=== PATIENT | female | born 1960 | race Caucasian/White ===

== ENCOUNTER 2017-10-27 13:49 | Day surgery (SDC) | payer OTHER ==
[2017-10-26 16:32] LABS: BASOPHILS % (AUTO) 0.3 % (0-1); EOSINOPHILS # (AUTO) 0.3 X10'3 (0-0.9); LYMPHOCYTES # (AUTO) 1.7 X10'3 (1.1-4.8); LYMPHOCYTES % (AUTO) 24.7 % (21-51); MEAN CORPUSCULAR HEMOGLOBIN 30.8 PG (27.0-31.0); MEAN CORPUSCULAR HGB CONC 33.9 % (33.0-36.5); MEAN CORPUSCULAR VOLUME 90.7 FL (78-98); MEAN PLATELET VOLUME 9.2 FL (7.4-10.4); MONOCYTES # (AUTO) 0.6 X10'3 (0-0.9); MONOCYTES % (AUTO) 8.7 % (2-12); NEUTROPHILS # (AUTO) 4.2 X10'3 (1.8-7.7); NEUTROPHILS % (AUTO) 62.3 % (42-75); PRE OP HEMATOCRIT 37.9 % (35.0-45.0); PRE OP HEMOGLOBIN 12.9 g/dL (12.0-16.0); PRE OP PLATELET COUNT 206 X10'3 (140-440); RED BLOOD COUNT 4.18 X10'6 (4.20-5.60); RED CELL DISTRIBUTION WIDTH 13.6 % (11.5-14.5)
[2017-10-26 16:41] LABS: HEMOGLOBIN A1C 5.8 % (4.5-6.2)
[2017-10-26 17:05] LABS: ALBUMIN 3.2 G/DL (3.4-5.0); ALBUMIN/GLOBULIN RATIO 0.9 (1.1-1.5); ALKALINE PHOSPHATASE 66 IU/L (46-116); BLOOD UREA NITROGEN 15 MG/DL (7-18); BUN/CREATININE RATIO 16.7 (6.6-38.0); CALCIUM 8.5 MG/DL (8.5-10.1); CHLORIDE 106 MMOL/L (99-107); PRE OP ALT 27 U/L (30-65); PRE OP ANION GAP 5 (8-16); PRE OP AST 21 U/L (10-37); PRE OP BILIRUB, TOTAL 0.6 MG/DL (0.0-1.0); PRE OP GLUCOSE 99 MG/DL (70-104); PRE OP POTASSIUM 3.8 MMOL/L (3.4-5.1); PRE OP SODIUM 142 MMOL/L (135-145); TOTAL CARBON DIOXIDE 31.2 MMOL/L (24-32); TOTAL PROTEIN 6.7 G/DL (6.4-8.2); eGFR 65 ML/MIN
[2017-10-27] VITALS (14 sets, daily range): BP systolic 134–171; BP diastolic 56–93
[~2017-10-27] VITALS: Ht 172.7 cm; Wt 138.5 kg
[~2017-10-27 13:49] MED LIST: ALBU8HFA PO; ASPI-1264 PO; ESCI20TA38 PO; FLUT16SP2 BOTHNARES; HYDR12.5 PO; IBUP200C5 PO; METF500T7 PO; ceFAZolin inj. 2,000 MG in normal saline 100ml IV soln 100 ML IV ONE; famotidine 20mg tablet PO ONE; ringers solution, lacted 1,000 ML IV SCH
[2017-10-27] MEDS ORDERED: ringers solution, lacted 1,000 ML IV SCH (14:16)
[2017-10-27] MEDS ORDERED: morphine 4 MG/ML inj SYRINge IV PRN ×2 (14:20)
[2017-10-27] MEDS ORDERED: ondansetron/PF 4mg/2ml inj IV PRN (14:20)
[2017-10-27] MEDS ORDERED: meperidine/PF 25mg/ml syringe IV PRN ×3 (14:20)
[2017-10-27] MEDS ORDERED: proCHLORperazine 10 MG/2 ml inj IV PRN (14:20)
[2017-10-27] MEDS ORDERED: dexamethasone sod phosphate 4mg/ml inj. ONE (16:33)
[2017-10-27] MEDS ORDERED: sevoflurane 250ml liquid IH ONE (16:33)
[2017-10-27] MEDS ORDERED: fentaNYL/PF 50MCG/1 ML 2ML syringe ONE (16:34)
[2017-10-27] MEDS ORDERED: MIDAZolam 5mg/5ml vial ONE (16:38)
[2017-10-27] MEDS ORDERED: propofol inj 20 ML IV ONE (17:55)
[2017-10-27] MEDS ORDERED: ondansetron/PF 4mg/2ml inj ONE (17:55)
[2017-10-27] MEDS ORDERED: ketorolac tromethamine 15mg/ml inj. IV ONE (18:00)
[2017-10-27] MEDS ORDERED: albuterol 2.5 MG/3 ML nebule NEB ONE (19:20)
[2017-10-28] MEDS ORDERED: ringers solution, lacted 1,000 ML IV SCH (05:00)
[2017-10-28] MEDS ORDERED: gabapentin 300mg capsule PO ONE (05:30)
[2017-10-28] MEDS ORDERED: oxyCODONE SR 10mg (sust. release) tab PO ONE (05:30)
[2017-10-28] MEDS ORDERED: metoclopramide 5 mg/ml inj IV ONE (05:30)
[2017-10-28] MEDS ORDERED: celeCOXIB 100mg capsule PO ONE (05:30)
[2017-10-28] MEDS ORDERED: acetaminophen 325mg tablet PO ONE (05:30)
[2017-10-28] MEDS ORDERED: vancomycin inj 1,500 MG in normal saline 300ml IV soln IV ONE (05:30)
== END 2017-10-27 22:07 | disposition home or self-care (01) ==
LOC: PAS 13:49 → ORTHO 4S 20:48 → PAS 22:07
PROVIDERS: ATTEND Orthopaedic Surgery
DX: S52.571A Other intraarticular fracture of lower end of right radius, initial encounter for closed fracture (principal); I10 Essential (primary) hypertension; E11.9 Type 2 diabetes mellitus without complications; E66.01 Morbid (severe) obesity due to excess calories; Z68.41 Body mass index [BMI] 40.0-44.9, adult; J45.998 Other asthma; G47.30 Sleep apnea, unspecified; Z99.81 Dependence on supplemental oxygen; Y99.8 Other external cause status; G43.909 Migraine, unspecified, not intractable, without status migrainosus; F32.89 Other specified depressive episodes; M19.90 Unspecified osteoarthritis, unspecified site; Z79.82 Long term (current) use of aspirin; Z79.84 Long term (current) use of oral hypoglycemic drugs; Z79.899 Other long term (current) drug therapy; W19.XXXA Unspecified fall, initial encounter; Y93.89 Activity, other specified; Y92.89 Other specified places as the place of occurrence of the external cause
CPT/HCPCS: 25608; 36415; 80053; 82948; 83036; 85025; 93005; 94640; 94760; A6222; A6446; A6449; J0690; J1100; J1885; J2250; J2270; J2405; J2704; J2765; J3010; J7030; J7120; A7000; J3370